=== PATIENT | female | born 1940 | race Two or more races ===

== ENCOUNTER 2018-05-12 12:59 | Outpatient (CLI) | payer MEDICARE | END 2018-05-12 23:59 | disposition home or self-care (01) | LOC: MSC 12:59 | PROVIDERS: ATTEND Nurse Practitioner Acute Care | DX: R27.0 Ataxia, unspecified (principal); G91.9 Hydrocephalus, unspecified; Z98.2 Presence of cerebrospinal fluid drainage device; G93.40 Encephalopathy, unspecified; K21.9 Gastro-esophageal reflux disease without esophagitis; I10 Essential (primary) hypertension; I25.10 Atherosclerotic heart disease of native coronary artery without angina pectoris; M06.9 Rheumatoid arthritis, unspecified; F03.90 Unspecified dementia, unspecified severity, without behavioral disturbance, psychotic disturbance, mood disturbance, and anxiety; F32.9 Major depressive disorder, single episode, unspecified ==